=== PATIENT | male | born 1965 | race Caucasian/White ===

== ENCOUNTER 2016-08-12 12:56 | Emergency (ER) | payer BC, OTHER ==
[2016-08-12 13:08] VITALS: BP 154/99
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
[2016-08-12] MEDS ORDERED: Erythromycin Base 0.5% Ophth Oint 1 GM Tube EYELF ONE (14:12)
== END 2016-08-12 14:30 | disposition home or self-care (01) ==
LOC: JD.ED 12:56
DX: T15.02XA Foreign body in cornea, left eye, initial encounter (principal); Z79.82 Long term (current) use of aspirin; X58.XXXA Exposure to other specified factors, initial encounter
CPT/HCPCS: 65220; 99283; A9270; 65210

== ENCOUNTER 2022-03-13 15:31 | Emergency (ER) | payer BC ==
[2022-03-13 15:43] VITALS: BP 141/87; PULSE 103
[2022-03-13] MEDS ORDERED: HYDROmorphone 0.5 MG/0.5 ML Syringe IVPUSH ONE ×2 (16:07→17:12)
[2022-03-13] MEDS ORDERED: Ondansetron 4 MG/2 ML SDV IVPUSH ONE (16:07)
== END 2022-03-13 19:05 | disposition home or self-care (01) ==
LOC: JD.ED 15:31
DX: S82.302A Unspecified fracture of lower end of left tibia, initial encounter for closed fracture (principal); S82.832A Other fracture of upper and lower end of left fibula, initial encounter for closed fracture; Z87.891 Personal history of nicotine dependence; W00.0XXA Fall on same level due to ice and snow, initial encounter
CPT/HCPCS: 36415; 73590; 73600; 80053; 85025; 96374; 96375; 96376; 99283; J1170; J2405

== ENCOUNTER 2022-03-13 21:20 | Emergency (ER) | payer BC ==
[2022-03-13] MEDS ORDERED: Ondansetron 4 MG/2 ML SDV IVPUSH ONE (21:22)
[2022-03-13] MEDS ORDERED: HYDROmorphone 0.5 MG/0.5 ML Syringe IVPUSH ONE ×2 (21:22→22:31)
[2022-03-13 21:35] VITALS: BP 147/90; PULSE 82
[2022-03-13] MEDS ORDERED: Sodium Chloride 0.9% 1,000 ML IV STA (22:31)
[2022-03-14] MEDS ORDERED: HYDROmorphone 0.5 MG/0.5 ML Syringe IVPUSH ONE (00:43)
== END 2022-03-14 01:15 ==
LOC: JD.ED 21:20
DX: S82.301A Unspecified fracture of lower end of right tibia, initial encounter for closed fracture (principal); W18.30XA Fall on same level, unspecified, initial encounter
CPT/HCPCS: 29505; 73590; 73610; 96361; 96374; 96375; 96376; 99283; J1170; J2405; J7030; 29515; 36415; 73600-26-LT; 73600-LT; 80053; 85025; 99284